=== PATIENT | female | born 1955 | race Caucasian/White ===

== ENCOUNTER 2018-07-13 09:03 | Emergency (ER) | payer OTHER, MEDICAID, SELFPAY ==
[2018-07-13 09:17] VITALS: BP 126/82; PULSE 83; RESP 15; O2SAT 100; BMI 28.6
--- NOTE | 2018-07-13 09:19 | ED.EYEPROB ---
HPI - Eye Problem General Chief complaint: Eye Problems Stated complaint: BLACK RT EYE Time Seen by Provider: 07/13/18 09:18 Source: patient Mode of arrival: ambulatory Limitations: no limitations History of Present Illness HPI Narrative: Patient is a 62-year-old female not on anticoagulation who a couple days ago hit the right side of her head on her shower door. She went into the urgent care and had the laceration repaired with Dermabond. She returns today because she has bruising above her right eye and also headache. She has not tried anything for prior to arrival. Related Data Previous Rx's Medication Instructions Recorded albuterol sulfate HFA 90 2 puff INHALATION Q4HP PRN #1 inh 01/28/18 mcg/actuation aerosol inhaler Allergies Allergy/AdvReac Type Severity Reaction Status Date / Time No Known Drug Allergies Allergy Verified 07/13/18 09:17 Review of Systems Constitutional Denies fatigue, Denies frequent falls and Reports headache(s) Eyes Denies blurry vision, Denies change in vision, Denies diplopia, Denies loss of vision and Denies eye pain ENT Ears, Nose, Mouth, and Throat: Denies vertigo and Reports headache(s) Musculoskeletal Comments: No neck pain Integumentary/Breasts Comments: Bruising above her right eye Neurologic Denies vertigo, Denies frequent falls, Reports headache(s) and Denies loss of vision Endocrine Denies fatigue Hematologic/Lymphatic Denies easy bleeding and Denies easy bruising PFSH Medical History Healthy adult (Acute) Surgical History No pertinent past surgical history (Acute) Family History Father Cancer Social History Smoking Status: Never smoker Exam Initial Vital Signs Initial Vital Signs: Vital Signs Pulse Rate 83 07/13/18 09:17 Respiratory Rate 15 07/13/18 09:17 Blood Pressure 126/82 07/13/18 09:17 Pulse Oximetry 100 07/13/18 09:17 Const General: cooperative, healthy appearing, comfortable, well developed, well groomed and No acute distress Orientation: alert, awake and oriented x3 HENMT Head: other Ears: TM's normal bilaterally Nose: external nose normal Eyes Pupils: PERRL EOM: EOM intact bilaterally Other: Patient with bruising on the upper eyelid of the right eye Resp Effort & Inspection: normal respiratory effort Back/Spine/Pelvis Cervical Spine: No cervical spinal tenderness and No step off deformity Skin Other: Cut on the right forehead covered with Dermabond consistent with her stated history Neuro General: alert, awake and oriented x3 Extrem General: capillary refill normal Psych Appearance: grossly normal and well kempt Course Vital Signs - 8 hr 07/13/18 09:17 Pulse Rate 83 Respiratory Rate 15 Blood Pressure 126/82 Pulse Oximetry 100 MDM - Eye Problem MDM Narrative Medical decision making narrative: Patient's bruising above her right eye is consistent with expected changes after having the cut on her right forehead. She does have bruising in between that cut and her eyebrow. Patient is neurologically intact. Informed her that this is expected potential outcome from the cut that she sustained. She is not on anticoagulation. Informed her that her headache could also be expected after hitting her head. Also stated that she could have other symptoms such as nausea and vomiting and mood changes in balance issues. Patient states that ?this is not normal? she states that it is ?4 days after the event and it is new blood ?informed her that this is not new blood and it is expected. I do not feel that a CT scan is warranted today. I feel like the patient disagrees with this decision. I did give her return precautions. Informed her that she could return to the emergency department at any time for further evaluation. Patient expressed understanding. Discharge Plan Departure Patient Disposition: Home Clinical Impression: Contusion of eye, right, Headache Instructions: DI for Eye Contusion, Closed Head Injury, DI for Headache Activity Restrictions/Additional Instructions: Your symptoms today are consistent with expected findings after hitting your head a couple days ago. You can take Tylenol for any headaches. I do recommend that you use ice over your right eye. If you develop any new symptoms or worsening symptoms please return to the emergency department for further evaluation. Prescriptions: No Action albuterol sulfate [Proventil HFA] 90 mcg/actuation HFA aerosol inhaler 2 puff INHALATION Q4HP PRN (Reason: shortness of breath) Qty: 1 RF: 3
--- NOTE | 2018-07-13 10:06 | PC.NURSE ---
pt c/o right eye lid redness and pain. started when she woke this am.
--- NOTE | 2018-07-13 10:07 | PC.NURSE ---
pt has known right sided face lac, happened on , lac is clean dry and appears to have been glued.
== END 2018-07-13 10:09 | disposition home or self-care (01) ==
PROVIDERS: Emergency Provider Emergency Medicine
DX: S05.11XA Contusion of eyeball and orbital tissues, right eye, initial encounter (principal); R51 Headache; W22.8XXA Striking against or struck by other objects, initial encounter
CPT/HCPCS: 99282

== ENCOUNTER → 2019-03-23 15:55 | Outpatient (CLI) | payer OTHER, MEDICAID, SELFPAY ==
--- NOTE | 2019-03-23 15:57 | DI.ECHO.S_ITS ---
[facility]---------+ [facility] +---------+ : : [address] [place] : : : : [id number] : : : : Phone: [phone] Echocardiogram Report + + :Name: OSMEL DIAS Study Date: 03/23/2019 Height: 65 in : :[facility] Weight: 180 lb : : Gender: Female BSA: 1.9 m2 : :: 1955 Age: 63 yrs BP: 122/70 mmHg: :Reason For Study: MURMUR, DYSPNEA : : Performed By: Og Evans : :Referring: SILVER HEDRICK : + + Interpretation Summary The left ventricle is normal in size, wall thickness, and systolic function without any focal wall motion abnormalities with the ejection fraction is estimated to be 60-65%. Diastolic parameters suggest probable normal left ventricular diastolic function and normal filling pressures. There has been no significant change since the previous study. The right ventricle is normal in size and function and is unchanged compared to the previous study. The right ventricular systolic pressure is estimated to be at least 22 mmHg based on an estimated right atrial pressure of 3 mm Hg. The left atrium is mildly dilated while right atrial size is normal. Both atria have mildly increased in size since the prior echo exam. There is no significant valvular heart disease. The ascending aorta is mild-moderately enlarged and measures significantly larger compared to the previous study. Procedure: A two-dimensional transthoracic echocardiogram with color flow and Doppler was performed. The study quality was technically good. Comparison is made with the echocardiogram of 12/13/13. The patient was in sinus bradycardia with heart rates between 48-70 bpm during the exam. This is significantly slower compared to the previous study. Left Ventricle: The left ventricle is normal in size, wall thickness, and systolic function without any focal wall motion abnormalities. The ejection fraction is estimated to be 60-65%. Diastolic parameters suggest probable normal left ventricular diastolic function and normal filling pressures. There has been no significant change since the previous study. Right Ventricle: The right ventricle is normal in size and function. This is unchanged compared to the previous study. Atria: The left atrium is mildly dilated. Both atria have mildly increased in size since the prior echo exam. Right atrial size is normal. The interatrial septum is intact with no evidence for an atrial septal defect. Mitral Valve: The mitral valve is normal in structure and function. There is trace mitral regurgitation. Aortic Valve: The aortic valve is normal in structure and function. The aortic valve is trileaflet. The aortic valve opens well. No aortic regurgitation is present. Tricuspid Valve: The tricuspid valve is normal in structure and function. There is trace tricuspid regurgitation. The right ventricular systolic pressure is estimated to be at least 22 mmHg based on an estimated right atrial pressure of 3 mm Hg. Pulmonic Valve: The pulmonic valve is normal in structure and function. There is trace pulmonic regurgitation. There is no significant valvular heart disease. Great Vessels: The aortic root is normal size. The ascending aorta is mild- moderately enlarged. This is significantly larger compared to the previous study. The pulmonary artery is normal size. The IVC is of normal diameter and collapses greater than 50% with a sniff. This suggests a low right atrial pressure of 3 mm Hg. Pericardium/ Pleura There is no pericardial effusion. There is no pleural effusion. MMode/2D Measurements & Calculations LVIDd: 4.3 cm LVOT diam: 2.2 cm LVIDs: 2.8 cm Ao root diam: 3.1 cm FS: 35.1 % Aortic Jxn: 2.6 cm EPSS: 0.21 cm asc Aorta Diam: 4.0 cm IVSd: 0.81 cm Ao Arch Diam (Prox Trans): 2.4 cm LVPWd: 0.86 cm LV martinez. diameter/BSA (cm/m^2): 2.3 LV sys. diameter/BSA (cm/m^2): 1.5 LA dimension: 3.8 cm RA long axis: 5.2 cm LA A2 area: 21.6 cm2 RA area: 18.6 cm2 LA A4 area: 21.4 cm2 RA vol: 56.2 ml LA length (vol): 5.7 cm RA : 29.7 ml/m2 LA vol: 69.0 ml IVC diam: 1.8 cm LA vol index: 36.5 ml/m2 Doppler Measurements & Calculations Ao V2 max: 168.9 cm/sec LVOT Max Cruz: 123.9 cm/sec Ao V2 mean: 132.2 cm/sec LV V1 max P.1 mmHg Ao max P.4 mmHg LV V1 VTI: 28.2 cm Ao mean P.4 mmHg LESLY(I,D): 2.7 cm2 Ao V2 VTI: 40.1 cm LESLY(V,D): 2.8 cm2 sev ratio: 0.70 LESLY indexed to BSA (cm^2/m^2): 1.4 MV E max cruz: 111.2 cm/sec TR max cruz: 217.5 cm/sec MV A max cruz: 72.8 cm/sec TR max P.9 mmHg MV E/A: 1.5 PA V2 max: 82.4 cm/sec Med Peak E' Cruz: 8.2 cm/sec PA V2 mean: 66.0 cm/sec E/E' med: 13.6 PA mean P.8 mmHg Lat Peak E' Cruz: 10.6 cm/sec PA pr(Accel): -8.3 mmHg E/E' lat: 10.5 PA Accel Time: 0.19 sec E/e' average: 12.0 MV dec time: 0.19 sec SV(LVOT): 106.3 ml Reading Physician:HOLDEN
== END ==
PROVIDERS: Visit Provider Physician Assistant
DX: R01.1 Cardiac murmur, unspecified (principal); R06.00 Dyspnea, unspecified; I77.89 Other specified disorders of arteries and arterioles; R07.89 Other chest pain; R00.2 Palpitations; Z13.220 Encounter for screening for lipoid disorders; Z13.6 Encounter for screening for cardiovascular disorders
CPT/HCPCS: 36415; 80053; 80061; 84443; 85025; 93306

== ENCOUNTER → 2019-03-23 16:52 | Outpatient (CLI) | payer OTHER, MEDICAID, SELFPAY ==
[2019-03-23 18:19] LABS: Add Manual Diff / Slide Review NO; Basophils Absolute Auto 100 /uL (0-100); Basophils Percent Auto 0.9 % (0-2); Eosinophils Absolute Auto 100 /uL (0-450); Eosinophils Percent Auto 1.4 % (2-4); Hematocrit 39.1 % (36-46); Hemoglobin 12.9 g/dL (12.0-16.0); Lymphocytes Absolute Auto 2600 /uL (1100-4500); Lymphocytes Percent Auto 30.3 % (25-40); Mean Corpuscular HGB Conc 32.9 % (30-36); Mean Corpuscular Volume 81.9 fL (80-100); Monocytes Absolute Auto 500 /uL (0-900); Monocytes Percent Auto 5.8 % (3-14); Neutrophils Absolute Auto 5400 /uL (1500-7000); Neutrophils Percent Auto 61.6 % (50-75); Platelet Count 317 X10^3/uL (150-400); Red Blood Cell Count 4.77 X10^6/uL (4.0-5.2); Red Cell Distribution Width 13.3 % (11.6-14.8); White Blood Cell Count 8.7 X10^3/uL (4.5-11.0)
[2019-03-23 18:30] LABS: Alanine Aminotransferase 12 IU/L (9-52); Albumin 4.3 g/dL (3.5-5.0); Albumin Globulin Ratio 1.4 (1.0-2.8); Alkaline Phosphatase 67 U/L (38-126); Aspartate Aminotransferase 21 IU/L (14-36); BUN Creatinine Ratio 22.9 (6-22); Bilirubin Total 0.3 mg/dL (0.2-1.3); Blood Urea Nitrogen 16 mg/dL (7-17); Calcium 9.5 mg/dL (8.4-10.2); Carbon Dioxide 28 mmol/L (22-32); Chloride 103 mmol/L (98-107); Cholesterol 231 mg/dL (140-199); Estimated Glomerular Filt Rate > 60.0 mL/min (>60); Glucose 85 mg/dL (80-110); HDL Cholesterol 65 mg/dL (40-60); HEMOLYSIS < 15 (0-50); LDL Cholesterol Calculated 154 mg/dL (<100); Potassium 4.4 mmol/L (3.4-5.1); Sodium 140 mmol/L (137-145); Total Protein 7.3 g/dL (6.3-8.2); Triglycerides 61 mg/dL (35-150)
[2019-03-23 19:00] LABS: Thyroid Stimulating Hormone 2.23 uIU/mL (0.47-4.68)
== END ==
PROVIDERS: PCP Physician Assistant; Visit Provider Physician Assistant
DX: R00.2 Palpitations (principal); R06.00 Dyspnea, unspecified; R07.89 Other chest pain; Z13.6 Encounter for screening for cardiovascular disorders; Z13.220 Encounter for screening for lipoid disorders
CPT/HCPCS: 36415; 80053; 80061; 84443; 85025